=== PATIENT | male | born 1950 | race Caucasian/White ===

== ENCOUNTER 2016-06-12 12:50 | Inpatient (IN) | payer SELFPAY ==
[2016-06-12] VITALS (16 sets, daily range): BP systolic 112–155; BP diastolic 59–82
[~2016-06-12] VITALS: Ht 177.8 cm; Wt 89.2 kg
[2016-06-12] MEDS ORDERED: NITROGLYCERIN 200 MCG/2 ML SYRINGE FOR CATH/VASC LAB. ONE (13:01)
[2016-06-12] MEDS ORDERED: VERAPAMIL 5 MG/2 ML VIAL. ONE (13:02)
[2016-06-12] MEDS ORDERED: ATROPINE 0.5 MG/5 ML DISP.SYRIN. ONE (13:02)
[2016-06-12] MEDS ORDERED: BIVALIRUDIN 250 MG VIAL. IV ONE ×2 (13:02→13:45)
[2016-06-12] MEDS ORDERED: HEPARIN for IV BOLUS 10,000 UNIT/10 ML VIAL. ONE (13:02)
[2016-06-12] MEDS ORDERED: MIDAZOLAM HCL/PF 5 MG/5 ML VIAL. ONE (13:02)
[2016-06-12] MEDS ORDERED: FENTANYL PF 250 MCG/5 ML VIAL. ONE (13:02)
[2016-06-12] MEDS ORDERED: LIDOCAINE 2% 20 ML VIAL. ONE (13:03)
--- NOTE | 2016-06-12 13:03 | PHYS DOC ---
Past Medical History Past Medical History: CAD, [place] Additional Past Surgical Histo: Cardia Stent x1, Right groin stent Alcohol Use: None Drug Use: None Adult General Chief Complaint Chief Complaint: CHEST PAIN-CARDIAC NATURE HPI HPI Patient is a 66 year old male who presents by EMS for prehospital STEMI. He has central chest pain associated with lightheadedness; had a presyncopal episode walking to his truck prior to calling EMS. States he had intermittent central chest pressure/pain starting around 1000 today while at work. He denies dyspnea, back pain, cough, abdominal pain, numbness, tingling, weakness. States this feels exactly like prior heart attack that he required a stent to be placed; this was years ago. States PCP is Dr. Mendez Review of Systems Review of Systems Constitutional: Denies fever or chills [] Eyes: Denies change in visual acuity, redness, or eye pain [] HENT: Denies nasal congestion or sore throat [] Respiratory: Denies cough or shortness of breath [] Cardiovascular: No additional information not addressed in HPI [] GI: Denies abdominal pain, nausea, vomiting, bloody stools or diarrhea [] : Denies dysuria or hematuria [] Musculoskeletal: Denies back pain or joint pain [] Integument: Denies rash or skin lesions [] Neurologic: Denies headache, focal weakness or sensory changes [] Endocrine: Denies polyuria or polydipsia [] Current Medications Current Medications Current Medications Medications (Trade) Dose Ordered Sig/Ton Start Time Stop Time Status Last Admin Dose Admin Atropine Sulfate 0.5 mg STK-MED ONCE 06/12/16 13:02 06/12/16 13:03 DC Bivalirudin (Angiomax) 250 mg STK-MED ONCE 06/12/16 13:02 06/12/16 13:03 DC Fentanyl Citrate (Fentanyl 5ml Vial) 250 mcg STK-MED ONCE 06/12/16 13:02 06/12/16 13:03 DC Heparin Sodium (Porcine) (Heparin Sodium) 10,000 unit STK-MED ONCE 06/12/16 13:02 06/12/16 13:03 DC Heparin Sodium/ Sodium Chloride 1,000 ml @ As Directed STK-MED ONCE 06/12/16 13:03 06/12/16 13:04 DC Lidocaine HCl 20 ml STK-MED ONCE 06/12/16 13:03 06/12/16 13:04 DC Midazolam HCl 5 mg 5 mg STK-MED ONCE 06/12/16 13:02 06/12/16 13:03 DC Nitroglycerin (Nitroglycerin) 200 mcg STK-MED ONCE 06/12/16 13:01 06/12/16 13:02 DC Sodium Chloride (Iv Sodium Chloride 0.9% 1000ml Bag) 1,000 ml @ 1,000 mls/hr Q1H 06/12/16 13:15 06/12/16 14:14 Verapamil HCl (Verapamil) 5 mg STK-MED ONCE 06/12/16 13:02 06/12/16 13:03 DC Allergies Allergies Allergies Coded Allergies Type Severity Reaction Last Updated Verified No Known Drug Allergies 06/12/16 No Physical Exam Physical Exam Constitutional: Well developed, well nourished, severe distress, non-toxic appearance. [] HENT: Normocephalic, atraumatic, bilateral external ears normal, oropharynx moist, nose normal. [] Eyes: PERRLA, EOMI. [] Neck: Normal range of motion, supple. [] Cardiovascular:Heart rate regular rhythm [] Lungs & Thorax: Bilateral breath sounds clear to auscultation [] Abdomen: Bowel sounds normal, soft, no tenderness. [] Skin: Warm, dry, no erythema, no rash. [] Back: No tenderness, no CVA tenderness. [] Extremities: No tenderness, ROM intact, no edema. [] Neurologic: Alert and oriented X 3, normal motor function, normal sensory function, no focal deficits noted. [] Psychologic: Affect normal, judgement normal, mood normal. [] EKG EKG EKG as interpreted by me with inferior and posterior STEMI, rate 55, normal intervals, no ectopy Course & Med Decision Making Course & Med Decision Making Pertinent Labs and Imaging studies reviewed. (See chart for details) CODE STEMI called; Dr. Meraz, cardiology, was present at bedside for evaluation. Labs were drawn, he was given IVFs. Give ASA by EMS. He was emergently taken to the shift lab technician with cardiology team. Discussed case with Dr. Wong, who will admit. Dragon Disclaimer Dragon Disclaimer This electronic medical record was generated, in whole or in part, using a voice recognition dictation system. Departure Departure Impression: Primary Impression: STEMI (ST elevation myocardial infarction) Disposition: 09 ADMITTED INPATIENT Condition: CRITICAL Problem Qualifiers Primary Impression: STEMI (ST elevation myocardial infarction) Involved coronary artery: unspecified coronary artery Qualified Code: I21.3 - ST elevation (STEMI) myocardial infarction of unspecified site Navdeep FLEMING MD Jun 12, 2016 13:03
[2016-06-12] MEDS ORDERED: PHENYLEPHRINE in 0.9% NACL PF 1 MG/10 ML DISP.SYRIN. IV ONE (13:08)
[2016-06-12] MEDS ORDERED: IOHEXOL 300 MG/ML 100ML VIAL. ONE (13:13)
[2016-06-12] MEDS ORDERED: IV NORMAL SALINE 1000ML BAG 1,000 ML IV SCH (13:15)
[2016-06-12 13:18] LABS: BASO # 0.1 x10^3/uL (0.0-0.2); BASO % 1 % (0-3); EOS % 2 % (0-3); HEMATOCRIT 41.4 % (39.0-53.0); HEMOGLOBIN 14.1 g/dL (13.0-17.5); LYMPH # 2.8 x10^3/uL (1.0-4.8); LYMPH % 23 % (24-48); MEAN CORPUSCULAR HEMOGLOBIN 29 pg (25-35); MEAN CORPUSCULAR HGB CONC 34 g/dL (31-37); MEAN CORPUSCULAR VOLUME 86 fL (79-100); MONO % 10 % (0-9); NEUT % 65 % (31-73); PLATELET COUNT 299 x10^3/uL (140-400); RED BLOOD COUNT 4.81 x10^6/uL (4.30-5.70); RED CELL DISTRIBUTION WIDTH 14.3 % (11.5-14.5); WHITE BLOOD COUNT 12.3 x10^3/uL (4.0-11.0)
[2016-06-12 13:27] LABS: INR 1.1 (0.8-1.1); PROTHROMBIN TIME PATIENT 13.1 SEC (11.7-14.0)
[2016-06-12 13:31] LABS: CALCIUM 8.7 mg/dL (8.5-10.1); CREATININE 1.1 mg/dL (0.7-1.3); POTASSIUM 4.1 mmol/L (3.5-5.1)
[2016-06-12 13:32] LABS: MAGNESIUM 1.8 mg/dL (1.8-2.4)
[2016-06-12] MEDS ORDERED: FENTANYL PF 250 MCG/5 ML VIAL. IV ONE (13:45)
[2016-06-12] MEDS ORDERED: HEPARIN for IV BOLUS 10,000 UNIT/10 ML VIAL. IART ONE (13:45)
[2016-06-12] MEDS ORDERED: IOHEXOL 300 MG/ML 100ML VIAL. IART ONE (13:45)
[2016-06-12] MEDS ORDERED: IV NORMAL SALINE 1000ML BAG 1,000 ML IV ONE (13:45)
[2016-06-12] MEDS ORDERED: NITROGLYCERIN 200 MCG/2 ML SYRINGE FOR CATH/VASC LAB. IART ONE (13:45)
[2016-06-12] MEDS ORDERED: LIDOCAINE 2% 20 ML VIAL. IJ ONE (13:45)
[2016-06-12] MEDS ORDERED: VERAPAMIL 5 MG/2 ML VIAL. IART ONE (13:45)
[2016-06-12] MEDS ORDERED: MIDAZOLAM HCL/PF 5 MG/5 ML VIAL. IV ONE (13:45)
[2016-06-12] MEDS ORDERED: PRASUGREL 10 MG TABLET. PO ONE (14:00)
[2016-06-12] MEDS ORDERED: PRASUGREL 10 MG TABLET. ONE (14:01)
[2016-06-12] MEDS ORDERED: ONDANSETRON PF 4 MG/2 ML VIAL. IV PRN (14:45)
[2016-06-12] MEDS ORDERED: ACETAMINOPHEN 500 MG TABLET PO PRN (14:45)
[2016-06-12] MEDS ORDERED: MORPHINE SULFATE 2 MG/ML DISP.SYRIN. IV PRN (14:45)
[2016-06-12 15:02] LABS: CHOLESTEROL/HDL RATIO 4.4
--- NOTE | 2016-06-12 15:12 | EKG ---
[facility] [address] [place] [address] Test Date: 2016-06-12 Test Time: 12:50:10 Pat Name: ANA ROSA JOHN Department: Room: 116 1 Gender: M Fur Glazer: : 1950 Requested By: Navdeep FLEMING Order Number: [id number] Reading MD: Melody Britton Measurements Intervals [place] Rate: 55 P: 26 ND: 174 QRS: 43 QRSD: 102 T: 86 QT: 394 QTc: 379 Interpretive Statements SINUS RHYTHM ACUTE ST ELEVATION INFERIOR WALL MYOCARDIAL INFARCTION RECIPROCAL ST DEPRESSION OVER ANTEROLATERAL LEADS RI6.01 Unconfirmed report No previous ECG available for comparison Electronically Signed On 06-16-2016 13:31:37 CDT by Melody Britton
--- NOTE | 2016-06-12 16:39 | CARD ---
APPROVED REPORT Procedure(s) performed: Right transradial approach Left Heart Catheterization, Coronary angiography, Left ventriculography PTCA with Stenting - RCA IVUS - RCA HISTORY The patient is a 66 year-old male with a history of : coronary artery disease, tobacco history() : Th e patient is a former smoker, previous PCI (The PCI date was 02-25-2006), family history of premature CAD. INDICATION The indication(s) include : STEMI (>0 to less than or equal to 6 hours), 66-year-old male presenting with intermittent chest pain for approximately 4 hours who was brought in by EMS for worsening chest pain. Initial EKG in the ER revealed a [address] elevations with posterior reciprocal changes. CASE TECHNIQUE During this case, Fluoroscopy and low osmolar contrast were used for imaging. PROCEDURE NARRATIVE The patient was brought emergently to the cardiac catheterization lab. Verbal informed consent was o btained. A timeout was performed confirming the patient's name, date of , procedure, and site of procedure. All necessary personnel were wearing the appropriate protective equipment and radiation monitor devices. (See nursing notes for medications administered). The right wrist was sterilely pr epped and draped in the usual fashion. The right wrist was infiltrated with 1 mL of 2% lidocaine for subcutaneous anesthesia. A 6 Maori Terumo glide sheath was inserted into the right radial artery w ithout difficulty. Right and left coronary angiography was performed using an Ikari 1.5 right guide catheter. HEMODYNAMICS: LVEDP 18 mm Hg No gradient on LV to aortic pullback. LEFT VENTRICULOGRAM: EF 55% Anterobasal: Normal. Anterolateral: Normal Apical: Normal Diaphragmatic: Normal Posterobasal: Normal CORONARY ANGIOGRAPHY: LM is a large caliber vessel with normal angiographic appearance. LAD is a large caliber vessel with normal angiographic appearance. Ramus is a moderate caliber vessel with a mid 40-50% stenosis. LCx is a moderate caliber non-dominant vessel with normal angiographic appearance. OM1 is a moderate caliber vessel with normal angiographic appearance. RCA is a large caliber dominant vessel with acute stent thrombosis (100% occlusion) of a mid previous ly placed stent. RPDA and RPL are moderate caliber vessels with normal angiographic appearance. INTERVENTIONAL TECHNIQUE: PCI OF THE MID RCA STENT THROMBOSIS Based on the presenting symptoms, EKG changes and angiographic findings and intervention was performe d on the RCA. Bivalirudin was used for anticoagulation. Next, through the guide catheter a 0.014 inch pro-water wire was advanced to the distal RCA. There was immediate wire reperfusion. Next balloon an gioplasty was performed with a Trek 3.0 x 15 mm balloon at 14 dinh near the mid RCA in the mid segment of the previously placed stent. Next, a 3.5 x 15 mm balloon (noncompliant) was used to perform repea t angioplasty of the previously placed stent. Subsequently, a intravascular ultrasound catheter was u sed to evaluate stent apposition to determine the etiology of stent thrombosis. Intravascular ultraso und revealed a undersized stent with lack of apposition in the midsegment. The intravascular ultrasou nd also revealed significant negative remodeling of the vessel and it measured approximately 3.5 mm i n maximum diameter in the proximal and distal segments. The mid segment was ecentrically enlarged wit h positive remodeling measuring approximately 4 mm. Next, a Zions 3.25 x 38 mm AMELIE was advanced to the the mid to distal RCA and deployed at 12 dinh. Jada lly, repeat angioplasty was performed with a 3.5/15 NC balloon at high pressure. Post-PCI angiography revealed excellent stent expansion with AZRA 3 flow in the RCA. No evidence of guide or wire related complications were noted. Due to less than optimal left sided coronary angiography with the Ikari 1.5 catheter, a TIG catheter was used to perform left coronary angiography. Left ventricular end diastolic pressure was obtained w ith a pigtail catheter and pullback was performed after left ventriculography. All catheter exchange s and advancements were performed over a guidewire. At case completion the right radial sheath was r emoved and a Terumo radial band was applied with 13 ml of air. The patient tolerated the procedure w ell and there were no immediate complications. The patient received Prasugrel 60mg at case completion . Conclusion 1. Inferior STEMI secondary to acute stent thrombosis of the previously placed mid RCA stent. 2. Successful PCI of the mid RCA with implantation of a 3.25 x 38 mm Xience AMELIE post-dilated to 3.6mm via the right radial approach. 3. IVUS of the RCA Recommendations ASA 81mg daily indefinitely Prasugrel 10mg daily for at least 1 year (Consider lifelong DAPT if tolerated) Cardiac rehab referral Lipid optimization Follow up through primary supervisor [facility].
--- NOTE | 2016-06-12 17:48 | PDOC2 ---
CARDIOLOGY CONSULT NOTE CHEIF COMPLAINT: Chest pain Problems: HPI: Patient is a 66-year-old male presenting to the hospital in the setting of intermittent chest pain. He was found to have significant inferior ST elevations and was taken to the catheterization laboratory urgently. PMHX: Hypertension Peripheral vascular disease Tobacco history SOCHX: No illicit drug use. He is . FAMHX: Noncontributory CURRENT MEDS: Current Medications Medications (Trade) Dose Ordered Sig/Ton Start Time Stop Time Status Last Admin Dose Admin Acetaminophen (Tylenol) 500 mg PRN Q6HRS PRN 06/12/16 14:45 Aspirin (Winsome Aspirin) 325 mg [id number] 06/13/16 08:00 Atorvastatin Calcium (Lipitor) 40 mg QHS 06/12/16 21:00 Atropine Sulfate 0.5 mg STK-MED ONCE 06/12/16 13:02 06/12/16 13:03 DC Bivalirudin (Angiomax) 250 mg 1X ONCE 06/12/16 13:45 06/12/16 13:46 DC 06/12/16 14:13 250 MG Dopamine HCl/ Dextrose 0 ml @ As Directed STK-MED ONCE 06/12/16 13:08 06/12/16 13:09 DC Fentanyl Citrate (Fentanyl 5ml Vial) 250 mcg 1X ONCE 06/12/16 13:45 06/12/16 13:46 DC Heparin Sodium (Porcine) (Heparin Sodium) 2,500 unit 1X ONCE 06/12/16 13:45 06/12/16 13:46 DC 06/12/16 14:12 2,500 UNIT Heparin Sodium/ Sodium Chloride 1,000 unit 1X ONCE 06/12/16 13:45 06/12/16 13:46 DC 06/12/16 13:45 1,000 UNIT Iohexol (Omnipaque 300 Mg/ml) 100 ml 1X ONCE 06/12/16 13:45 06/12/16 13:46 DC 06/12/16 14:07 162 ML Lidocaine HCl 20 ml STK-MED ONCE 06/12/16 13:03 06/12/16 13:04 DC Lidocaine HCl 20 ml 20 ml 1X ONCE 06/12/16 13:45 06/12/16 13:46 DC 06/12/16 14:06 2 ML Midazolam HCl (Versed) 5 mg 1X ONCE 06/12/16 13:45 06/12/16 13:46 DC 06/12/16 14:08 3 MG Morphine Sulfate 2 mg PRN Q2HR PRN 06/12/16 14:45 Nitroglycerin (Nitroglycerin) 200 mcg 1X ONCE 06/12/16 13:45 06/12/16 13:46 DC 06/12/16 14:07 200 MCG Ondansetron HCl (Zofran) 4 mg PRN Q6HRS PRN 06/12/16 14:45 Phenylephrine HCl 1 mg 1 mg STK-MED ONCE 06/12/16 13:08 06/12/16 13:09 DC Prasugrel (Effient) 10 mg DAILYWBKFT 06/13/16 08:00 Sodium Chloride (Iv Sodium Chloride 0.9% 1000ml Bag) 1,000 ml @ 100 mls/hr 1X ONCE 06/12/16 13:45 06/12/16 23:44 Verapamil HCl (Verapamil) 2.5 mg 1X ONCE 06/12/16 13:45 06/12/16 13:46 DC 06/12/16 14:15 2.5 MG ALLERGIES: Allergies Coded Allergies Type Severity Reaction Last Updated Verified No Known Drug Allergies 06/12/16 No ROS: Negative for 10 out of 14 systems reviewed unless otherwise mentioned above in history of present illness. PHYSICAL EXAM: Vital Signs: Vital Signs Date Time Temp Pulse Resp B/P Pulse Ox O2 Delivery O2 Flow Rate FiO2 06/12/16 16:11 Room Air 06/12/16 14:19 72 16 95 3.0 06/12/16 12:50 97.4 128/70 97.4 Physical Exam: In general he was in mild distress from chest pain Head and neck exam unremarkable Regular rate and rhythm without any murmurs rubs gallops Lungs clear to auscultation anteriorly Abdomen soft nontender nondistended 2+ radial and dorsalis pedis pulses Normal mood/affect DIAGNOSTIC TESTING: Troponin 0.059 EKG with [address] elevations Lab Laboratory Tests Test 06/12/16 12:50 White Blood Count 12.3x10^3/uL (4.0-11.0) H Red Blood Count 4.81x10^6/uL (4.30-5.70) Hemoglobin 14.1g/dL (13.0-17.5) Hematocrit 41.4% (39.0-53.0) Mean Corpuscular Volume 86fL (79-100) Mean Corpuscular Hemoglobin 29pg (25-35) Mean Corpuscular Hemoglobin Concent 34g/dL (31-37) Red Cell Distribution Width 14.3% (11.5-14.5) Platelet Count 299x10^3/uL (140-400) Neutrophils (%) (Auto) 65% (31-73) Lymphocytes (%) (Auto) 23% (24-48) L Monocytes (%) (Auto) 10% (0-9) H Eosinophils (%) (Auto) 2% (0-3) Basophils (%) (Auto) 1% (0-3) Neutrophils # (Auto) 7.9x10^3uL (1.8-7.7) H Lymphocytes # (Auto) 2.8x10^3/uL (1.0-4.8) Monocytes # (Auto) 1.2x10^3/uL (0.0-1.1) H Eosinophils # (Auto) 0.3x10^3/uL (0.0-0.7) Basophils # (Auto) 0.1x10^3/uL (0.0-0.2) Prothrombin Time 13.1SEC (11.7-14.0) Prothromb Time International Ratio 1.1 (0.8-1.1) Sodium Level 142mmol/L (136-145) Potassium Level 4.1mmol/L (3.5-5.1) Chloride Level 105mmol/L (98-107) Carbon Dioxide Level 24mmol/L (21-32) Anion Gap 13 (6-14) Blood Urea Nitrogen 22mg/dL (8-26) Creatinine 1.1mg/dL (0.7-1.3) Estimated GFR (Cockcroft-Gault) 67.0 Glucose Level 117mg/dL (70-99) H Calcium Level 8.7mg/dL (8.5-10.1) Cholesterol Level 164mg/dL (0-200) LDL Cholesterol, Calculated 107mg/dL (0-100) H VLDL Cholesterol, Calculated 20mg/dL (0-40) Cholesterol/HDL Ratio 4.[address]: [address] elevation myocardial infarction status post PCI with placement of a 3.25 x 38 mm drug-eluting stent in the mid RCA. PLAN: 1. Aspirin 81 mg daily indefinitely, Effient 10 mg daily for 1 full year and dual antiplatelet therapy with aspirin and Plavix thereafter. 2. Lipid optimization with LDL goal less than 70. 3. Cardiac rehabilitation referral. 4. Routine right radial artery band management. Monitoring the ICU for 24 hours and transferred to regular floor and anticipate discharge in approximate 48 hours. JORGE HINTON MD Jun 12, 2016 17:48
--- NOTE | 2016-06-12 18:54 | PDOC1 ---
History and Physical Date of Admission Date of Admission DATE: 06/12/16 TIME: 18:48 Identification/Chief Complaint Chief Complaint CP Problems: Source Source: Chart review, Patient History of Present Illness History of Present Illness 66 y.o male, had excruciating CP at rest while at work, hx AR > 10 yrs ago with 1 stent. CP was so severe, 10/10, midsternal tammy left sided associated with diaphoresis, vision problems, almost blacking out/tunnel vision , he thought he would collapse. Decided not to drive and call 911. EMS arrived, EKG done, EKG showed STEMI, activated STEMI code and cards received pt out in the parking lot - a gesture he very much appreciated,. Underwent urgent cardiac cath which showed 100% occlusion of indwelling stent, Was re stented and now CP free, seen in ICU, off dopamine gtt, BP good and claims he feels so good that he thinks I could dc him home tonight. Past Medical History Cardiovascular: CAD Past Surgical History Past Surgical History: No pertinent history Family History Family History: Hypertension Social History Smoke: No ALCOHOL: none Drugs: None Current Problem List Problem List Problems Medical Problems: (1) STEMI (ST elevation myocardial infarction) Status: Acute Problems: Current Medications Current Medications Current Medications Sodium Chloride (Iv Sodium Chloride 0.9% 1000ml Bag) 1,000 ml @ 1,000 mls/hr Q1H IV Last administered on 06/12/16t 13:05; Start 06/12/16 at 13:15; Stop at 14:14; Status DC Nitroglycerin (Nitroglycerin) 200 mcg STK-MED ONCE .ROUTE ; Start 06/12/16 at 13 :01; Stop 06/12/16 at 13:02; Status DC Atropine Sulfate 0.5 mg STK-MED ONCE .ROUTE ; Start 06/12/16 at 13:02; Stop at 13:03; Status DC Verapamil HCl (Verapamil) 5 mg STK-MED ONCE .ROUTE ; Start 06/12/16 at 13:02; Stop 06/12/16 at 13:03; Status DC Heparin Sodium (Porcine) (Heparin Sodium) 10,000 unit STK-MED ONCE .ROUTE ; Start 06/12/16 at 13:02; Stop 06/12/16 at 13:03; Status DC Bivalirudin (Angiomax) 250 mg STK-MED ONCE IV ; Start 06/12/16 at 13:02; Stop at 13:03; Status DC Fentanyl Citrate (Fentanyl 5ml Vial) 250 mcg STK-MED ONCE .ROUTE ; Start at 13:02; Stop 06/12/16 at 13:03; Status DC Midazolam HCl 5 mg 5 mg STK-MED ONCE .ROUTE ; Start 06/12/16 at 13:02; Stop at 13:03; Status DC Heparin Sodium/ Sodium Chloride 1,000 ml @ As Directed STK-MED ONCE .ROUTE ; Start 06/12/16 at 13:03; Stop 06/12/16 at 13:04; Status DC Lidocaine HCl 20 ml STK-MED ONCE .ROUTE ; Start 06/12/16 at 13:03; Stop at 13:04; Status DC Phenylephrine HCl 1 mg 1 mg STK-MED ONCE IV ; Start 06/12/16 at 13:08; Stop at 13:09; Status DC Dopamine HCl/ Dextrose 0 ml @ As Directed STK-MED ONCE IV ; Start 06/12/16 at 13 :08; Stop 06/12/16 at 13:09; Status DC Iohexol (Omnipaque 300 Mg/ml) 100 ml STK-MED ONCE .ROUTE ; Start 06/12/16 at 13: 13; Stop 06/12/16 at 13:14; Status DC Nitroglycerin (Nitroglycerin) 200 mcg 1X ONCE IART Last administered on 14:07; Start 06/12/16 at 13:45; Stop 06/12/16 at 13:46; Status DC Verapamil HCl (Verapamil) 2.5 mg 1X ONCE IART Last administered on 06/12/16 14:15; Start 06/12/16 at 13:45; Stop 06/12/16 at 13:46; Status DC Heparin Sodium (Porcine) (Heparin Sodium) 2,500 unit 1X ONCE IART Last administered on 06/12/16 14:12; Start 06/12/16 at 13:45; Stop 06/12/16 at 13:46 ; Status DC Heparin Sodium/ Sodium Chloride 1,000 unit 1X ONCE IART Last administered on 13:45; Start 06/12/16 at 13:45; Stop 06/12/16 at 13:46; Status DC Midazolam HCl (Versed) 5 mg 1X ONCE IV Last administered on 06/12/16 14:08; Start 06/12/16 at 13:45; Stop 06/12/16 at 13:46; Status DC Fentanyl Citrate (Fentanyl 5ml Vial) 250 mcg 1X ONCE IV ; Start 06/12/16 at 13: 45; Stop 06/12/16 at 13:46; Status DC Iohexol (Omnipaque 300 Mg/ml) 100 ml 1X ONCE IART Last administered on 14:07; Start 06/12/16 at 13:45; Stop 06/12/16 at 13:46; Status DC Bivalirudin (Angiomax) 250 mg 1X ONCE IV Last administered on 06/12/16 14:13 ; Start 06/12/16 at 13:45; Stop 06/12/16 at 13:46; Status DC Lidocaine HCl 20 ml 20 ml 1X ONCE IJ Last administered on 06/12/16 14:06; Start 06/12/16 at 13:45; Stop 06/12/16 at 13:46; Status DC Sodium Chloride (Iv Sodium Chloride 0.9% 1000ml Bag) 1,000 ml @ 100 mls/hr 1X ONCE IV Last administered on 06/12/16 17:46; Start 06/12/16 at 13:45; Stop at 23:44 Prasugrel (Effient) 10 mg STK-MED ONCE .ROUTE ; Start 06/12/16 at 14:01; Stop at 14:02; Status DC Prasugrel (Effient) 60 mg 1X ONCE PO Last administered on 06/12/16 14:16; Start 06/12/16 at 14:00; Stop 06/12/16 at 14:04; Status DC Acetaminophen (Tylenol) 500 mg PRN Q6HRS PRN PO MILD PAIN / TEMP; Start at 14:45 Ondansetron HCl (Zofran) 4 mg PRN Q6HRS PRN IV NAUSEA/VOMITING; Start 06/12/16 at 14:45 Morphine Sulfate 2 mg PRN Q2HR PRN IV PAIN; Start 4/18/17 at 14:45 Aspirin (Winsome Aspirin) 325 mg DAILYWBKFT PO ; Start 06/13/16 at 08:00; Stop at 08:00; Status DC Prasugrel (Effient) 10 mg DAILYWBKFT PO ; Start 06/13/16 at 08:00 Atorvastatin Calcium (Lipitor) 40 mg QHS PO ; Start 06/12/16 at 21:00 Aspirin (Ecotrin) 81 mg DAILYWBKFT PO ; Start 06/13/16 at 08:00 Allergies Allergies: Coded Allergies: No Known Drug Allergies (Unverified , 06/12/16) ROS Review of System per HPI General: No: Appetite, Chills, Fatigue, Malaise, Night Sweats, Other PSYCHOLOGICAL ROS: No: Anxiety, Behavioral Disorder, Concentration difficultie , Decreased libido, Depression, Disorientation, Hallucinations, Hostility, Irritablity, Memory difficulties, Mood Swings, Obsessive thoughts, Other, Physical abuse, Sexual abuse, Sleep disturbances, Suicidal ideation Eyes: No Blurry vision, No Decreased vision, No Double vision, No Dry eyes, No Excessive tearing, No Eye Pain, No Itchy Eyes, No Loss of vision, No Other, No Photophobia, No Scotomata, No Uses contacts, No Uses glasses HEENT: No: Epistaxis, Heacaches, Hearing change, Nasal congestion, Nasal discharge, Oral lesions, Other, Sinus pain, Sneezing, Snoring, Sore Throat, Tinnitus, Vertigo, Visual Changes, Vocal changes ALLERGY AND IMMUNOLOGY: No: Hives, Insect Bite Sensitivity, Itchy/Watery Eyes, Nasal Congestion, Other, Post Nasal Drip, Seasonal Allergies Hematological and Lymphatic: No: Bleeding Problems, Blood Clots, Blood Transfusions, Brusing, Night Sweats, Other, Pallor, Swollen Lymph Nodes ENDOCRINE: No: Breast Changes, Galactorrhea, Hair Pattern Changes, Hot Flashes , Malaise/lethargy, Mood Swings, Other, Palpitations, Polydipsia/polyuria, Skin Changes, Temperature Intolerance, Unexpected Weight Changes Breast: No New/Changing Breast Lumps, No Nipple changes, No Nipple discharge, No Other Respiratory: No: Cough, Hemoptysis, Orthopnea, Other, Pleuritic Pain, SOB with excertion, Shortness of breath, Sputum Changes, Stridor, Tachypnea, Wheezing Cardiovascular: yes Chest Pain, No Edema, No Lt Headedness, No Orthopnea, No Other, No Palpitations, No Paroxysmal Noc. Dyspnea Gastrointestinal: No Abdominal Pain, No Constipation, No Diarrhea, No Hematochezia, No Melena, No Nausea, No Other, No Vomiting Genitourinary: No , No , No , No , No , No , No , No Discharge, No Dysuria, No Flank Pain, No Frequency, No Hematuria, No Incontinence, No Other, No Pain, No Retention, No Urgency Musculoskeletal: No Gait Disturbance, No Joint Pain, No Joint Stiffness, No Joint Swelling, No Muscle Pain, No Muscular Weakness, No Other, No Pain In:, No Swelling In: Neurological: No Behavorial Changes, No Bowel/Bladder ControlChng, No Confusion , No Dizziness, No Gait Disturbance, No Headaches, No Impaired Coord/balance, No Memory Loss, No Numbness/Tingling, No Other, No Seizures, No Speech Problems , No Tremors, No Visual Changes, No Weakness Physical Exam General: Alert, Oriented X3, Cooperative, No acute distress HEENT: PERRLA Lungs: Clear to auscultation, Normal air movement Heart: S1S2, RRR, no thrills, no rubs Cardiovascular: S1, S2 Breasts: Normal Abdomen: Normal bowel sounds, Soft, No tenderness, No hepatosplenomegaly, No masses Male Genitals Exam: normal genitalia, normal prostate Extremities: No clubbing, No cyanosis, No edema, Normal pulses, No tenderness/ swelling Skin: No rashes, No breakdown, No significant lesion Neuro: Normal gait, Normal speech, Strength at 5/5 X4 ext, Normal tone, Sensation intact, Cranial nerves 3-12 NL, Reflexes 2+ Psych/Mental Status: Mental status NL, Mood NL Vitals Vitals Vital Signs Date Time Temp Pulse Resp B/P Pulse Ox O2 Delivery O2 Flow Rate FiO2 06/12/16 18:00 72 14 146/77 95 Room Air 06/12/16 15:00 98.7 98.7 06/12/16 14:45 2.0 Labs Labs Laboratory Tests Test 06/12/16 12:50 White Blood Count 12.3x10^3/uL (4.0-11.0) Red Blood Count 4.81x10^6/uL (4.30-5.70) Hemoglobin 14.1g/dL (13.0-17.5) Hematocrit 41.4% (39.0-53.0) Mean Corpuscular Volume 86fL (79-100) Mean Corpuscular Hemoglobin 29pg (25-35) Mean Corpuscular Hemoglobin Concent 34g/dL (31-37) Red Cell Distribution Width 14.3% (11.5-14.5) Platelet Count 299x10^3/uL (140-400) Neutrophils (%) (Auto) 65% (31-73) Lymphocytes (%) (Auto) 23% (24-48) Monocytes (%) (Auto) 10% (0-9) Eosinophils (%) (Auto) 2% (0-3) Basophils (%) (Auto) 1% (0-3) Neutrophils # (Auto) 7.9x10^3uL (1.8-7.7) Lymphocytes # (Auto) 2.8x10^3/uL (1.0-4.8) Monocytes # (Auto) 1.2x10^3/uL (0.0-1.1) Eosinophils # (Auto) 0.3x10^3/uL (0.0-0.7) Basophils # (Auto) 0.1x10^3/uL (0.0-0.2) Prothrombin Time 13.1SEC (11.7-14.0) Prothromb Time International Ratio 1.1 (0.8-1.1) Sodium Level 142mmol/L (136-145) Potassium Level 4.1mmol/L (3.5-5.1) Chloride Level 105mmol/L (98-107) Carbon Dioxide Level 24mmol/L (21-32) Anion Gap 13 (6-14) Blood Urea Nitrogen 22mg/dL (8-26) Creatinine 1.1mg/dL (0.7-1.3) Estimated GFR (Cockcroft-Gault) 67.0 Glucose Level 117mg/dL (70-99) Calcium Level 8.7mg/dL (8.5-10.1) Magnesium Level 1.8mg/dL (1.8-2.4) Troponin I Quantitative 0.059ng/mL (0.000-0.055) UP-Dna-C-Type Natriuretic Peptide 280pg/mL (0-124) Triglycerides Level 99mg/dL (0-150) Cholesterol Level 164mg/dL (0-200) LDL Cholesterol, Calculated 107mg/dL (0-100) VLDL Cholesterol, Calculated 20mg/dL (0-40) HDL Cholesterol 37mg/dL (40-60) Cholesterol/HDL Ratio 4.4 Laboratory Tests Test 06/12/16 12:50 White Blood Count 12.3x10^3/uL (4.0-11.0) Red Blood Count 4.81x10^6/uL (4.30-5.70) Hemoglobin 14.1g/dL (13.0-17.5) Hematocrit 41.4% (39.0-53.0) Mean Corpuscular Volume 86fL (79-100) Mean Corpuscular Hemoglobin 29pg (25-35) Mean Corpuscular Hemoglobin Concent 34g/dL (31-37) Red Cell Distribution Width 14.3% (11.5-14.5) Platelet Count 299x10^3/uL (140-400) Neutrophils (%) (Auto) 65% (31-73) Lymphocytes (%) (Auto) 23% (24-48) Monocytes (%) (Auto) 10% (0-9) Eosinophils (%) (Auto) 2% (0-3) Basophils (%) (Auto) 1% (0-3) Neutrophils # (Auto) 7.9x10^3uL (1.8-7.7) Lymphocytes # (Auto) 2.8x10^3/uL (1.0-4.8) Monocytes # (Auto) 1.2x10^3/uL (0.0-1.1) Eosinophils # (Auto) 0.3x10^3/uL (0.0-0.7) Basophils # (Auto) 0.1x10^3/uL (0.0-0.2) Prothrombin Time 13.1SEC (11.7-14.0) Prothromb Time International Ratio 1.1 (0.8-1.1) Sodium Level 142mmol/L (136-145) Potassium Level 4.1mmol/L (3.5-5.1) Chloride Level 105mmol/L (98-107) Carbon Dioxide Level 24mmol/L (21-32) Anion Gap 13 (6-14) Blood Urea Nitrogen 22mg/dL (8-26) Creatinine 1.1mg/dL (0.7-1.3) Estimated GFR (Cockcroft-Gault) 67.0 Glucose Level 117mg/dL (70-99) Calcium Level 8.7mg/dL (8.5-10.1) Magnesium Level 1.8mg/dL (1.8-2.4) Troponin I Quantitative 0.059ng/mL (0.000-0.055) NC-Eou-Y-Type Natriuretic Peptide 280pg/mL (0-124) Triglycerides Level 99mg/dL (0-150) Cholesterol Level 164mg/dL (0-200) LDL Cholesterol, Calculated 107mg/dL (0-100) VLDL Cholesterol, Calculated 20mg/dL (0-40) HDL Cholesterol 37mg/dL (40-60) Cholesterol/HDL Ratio 4.4 VTE Prophylaxis Ordered VTE Prophylaxis Devices: Yes VTE Pharmacological Prophylaxi: Yes Assessment/Plan Assessment/Plan 1. STEMI s.p LHC with re stenting of 100% stenosis of indwelling stent 2. Transient hypotension off dopa 3. Hx AR CAD > 10 yrs 4. REMOTE smoking hx PLAn: CPm Per cads ICU overnight MIght be able to t/o home tammy when cleared by cards EDucation and counselling done Lipid panel if not yet done Seen in ICU 116 MARK DALEY MD Jun 12, 2016 18:54
[2016-06-12] MEDS: ATORVASTATIN CALCIUM 40 MG TABLET. PO SCH (19:41)
[2016-06-13] VITALS (15 sets, daily range): BP systolic 99–151; BP diastolic 47–75
[2016-06-13] MEDS ORDERED: SERT100T PO (07:15)
[2016-06-13] MEDS ORDERED: OMEG100020 PO (07:15)
[2016-06-13] MEDS ORDERED: ASPI81TA2 PO (07:15)
[2016-06-13] MEDS ORDERED: ASPIRIN 325 MG TABLET PO SCH (08:00)
[2016-06-13] MEDS: ASPIRIN ENTERIC COATED 81 MG TABLET.DR. PO SCH (08:30)
[2016-06-13] MEDS: PRASUGREL 10 MG TABLET. PO SCH (08:30)
[2016-06-13] MEDS ORDERED: ATOR10TA PO (08:32)
[2016-06-13] MEDS ORDERED: OMEG-113 PO (08:32)
[2016-06-13] MEDS: SERTRALINE 50 MG TABLET. PO SCH (10:53)
--- NOTE | 2016-06-13 11:17 | PDOC ---
NELLYAPRIL Ciro [employer]EC[employer]IVE CHEF 06/13/16 1116: CARDIO Progress Notes Date and Time Date of Service 06/13/2016 Time of Evaluation 1111 Subjective Subjective: No Chest Pain, No Palpitations, No Dizziness, Other ("catch" with breathing) Vitals Vitals Vital Signs Date Time Temp Pulse Resp B/P Pulse Ox O2 Delivery O2 Flow Rate FiO2 06/13/16 09:00 64 16 144/66 98 Room Air 06/13/16 08:00 98.3 98.3 06/12/16 23:59 3.0 Weight Weight [ ] Stability Assessment Stability Assess.: stable for transfer (to [facility]) Input and Output Intake and Output Intake and Output 06/13/16 07:00 Intake Total 2389 ml Output Total 2275 ml Balance 114 ml Intake Oral 800 ml IV Total 1589 ml Output Urine Total 2275 ml Laboratory Labs Laboratory Tests Test 06/12/16 12:50 06/12/16 18:40 06/13/16 01:05 White Blood Count 12.3x10^3/uL (4.0-11.0) Red Blood Count 4.81x10^6/uL (4.30-5.70) Hemoglobin 14.1g/dL (13.0-17.5) Hematocrit 41.4% (39.0-53.0) Mean Corpuscular Volume 86fL (79-100) Mean Corpuscular Hemoglobin 29pg (25-35) Mean Corpuscular Hemoglobin Concent 34g/dL (31-37) Red Cell Distribution Width 14.3% (11.5-14.5) Platelet Count 299x10^3/uL (140-400) Neutrophils (%) (Auto) 65% (31-73) Lymphocytes (%) (Auto) 23% (24-48) Monocytes (%) (Auto) 10% (0-9) Eosinophils (%) (Auto) 2% (0-3) Basophils (%) (Auto) 1% (0-3) Neutrophils # (Auto) 7.9x10^3uL (1.8-7.7) Lymphocytes # (Auto) 2.8x10^3/uL (1.0-4.8) Monocytes # (Auto) 1.2x10^3/uL (0.0-1.1) Eosinophils # (Auto) 0.3x10^3/uL (0.0-0.7) Basophils # (Auto) 0.1x10^3/uL (0.0-0.2) Prothrombin Time 13.1SEC (11.7-14.0) Prothromb Time International Ratio 1.1 (0.8-1.1) Sodium Level 142mmol/L (136-145) Potassium Level 4.1mmol/L (3.5-5.1) Chloride Level 105mmol/L (98-107) Carbon Dioxide Level 24mmol/L (21-32) Anion Gap 13 (6-14) Blood Urea Nitrogen 22mg/dL (8-26) Creatinine 1.1mg/dL (0.7-1.3) Estimated GFR (Cockcroft-Gault) 67.0 Glucose Level 117mg/dL (70-99) Calcium Level 8.7mg/dL (8.5-10.1) Magnesium Level 1.8mg/dL (1.8-2.4) Troponin I Quantitative 0.059ng/mL (0.000-0.055) 8.094ng/mL (0.000-0.055) 15.278ng/mL (0.000-0.055) SN-Qsg-R-Type Natriuretic Peptide 280pg/mL (0-124) Triglycerides Level 99mg/dL (0-150) Cholesterol Level 164mg/dL (0-200) LDL Cholesterol, Calculated 107mg/dL (0-100) VLDL Cholesterol, Calculated 20mg/dL (0-40) HDL Cholesterol 37mg/dL (40-60) Cholesterol/HDL Ratio 4.4 Physical Exam HEENT: Neck Supple W Full Motion Chest: Symmetric LUNGS: Clear to Auscultation Heart: S1S2, RRR, no gallops, no murmurs Abdomen: Soft N/T Extremities: 2+ Dorsalis Pedis, 2+ Posterior Tibial, No Edema, Other (right radial arteriotomy site C/D/I; pulse 2+; cap refill brisk; 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 STEMI, inferior thrombosis in existing RCA stent; 3.25 X 38 mm Zions AMELIE to mid RCA DAPT recommended for at least 12 months and lifelong if tolerates LVEF 55% on LV gram may transfer to CVC today and increase activity - likely discharge tomorrow 2. Hypotension has been weaned off dobutamine will try to start low dose BB later today if BP and HR stable 3. HLD LDLs = 107 continue high dose statin therapy JORGE HINTON MD 06/13/16 1721: CARDIO Progress Notes Plan Plan Patient seen and examined. Agree with above nurse practitioner noted. No acute events overnight. Patient denies any chest pain. Normal cardiac exam. Medications at laboratory studies reviewed. Continue to trend biomarkers. Anticipate echo cardiac exam tomorrow morning. If stable overnight likely discharged tomorrow. APRIL VILLEGAS [employer]F Jun 13, 2016 11:16 JORGE HINTON MD Jun 13, 2016 17:21
[2016-06-13] MEDS: CARVEDILOL 3.125 MG TABLET. PO SCH ×2 (12:05→17:23)
--- NOTE | 2016-06-13 12:31 | PDOC ---
PROGRESS NOTES Chief Complaint Chief Complaint 1. STEMI s.p C with re stenting of 100% stenosis of indwelling stent at RCA, EF 55% 2. Transient hypotension off dopa 3. Hx [place] CAD > 10 yrs 4. REMOTE smoking hx PLAn: ok to transfer out of ICU MIght be able to t/o home tammy when cleared by cards EDucation and counselling done on asa, effient, coreg increase lipitor to 40mg daily History of Present Illness History of Present Illness post PCI no chest pain Vitals Vitals Vital Signs Date Time Temp Pulse Resp B/P Pulse Ox O2 Delivery O2 Flow Rate FiO2 06/13/16 10:00 70 28 141/72 98 Room Air 06/13/16 08:00 98.3 98.3 06/12/16 23:59 3.0 Physical Exam General: Alert, Oriented X3, Cooperative, No acute distress Heart: Regular rate, Normal S1, Normal S2 Lungs: Clear Abdomen: Normal bowel sounds, Soft, No tenderness, No hepatosplenomegaly, No masses Extremities: No clubbing, No cyanosis, No edema, Normal pulses, No tenderness/ swelling Skin: No rashes, No breakdown, No significant lesion Labs LABS Laboratory Tests Test 06/12/16 12:50 06/12/16 18:40 06/13/16 01:05 White Blood Count 12.3x10^3/uL (4.0-11.0) Red Blood Count 4.81x10^6/uL (4.30-5.70) Hemoglobin 14.1g/dL (13.0-17.5) Hematocrit 41.4% (39.0-53.0) Mean Corpuscular Volume 86fL (79-100) Mean Corpuscular Hemoglobin 29pg (25-35) Mean Corpuscular Hemoglobin Concent 34g/dL (31-37) Red Cell Distribution Width 14.3% (11.5-14.5) Platelet Count 299x10^3/uL (140-400) Neutrophils (%) (Auto) 65% (31-73) Lymphocytes (%) (Auto) 23% (24-48) Monocytes (%) (Auto) 10% (0-9) Eosinophils (%) (Auto) 2% (0-3) Basophils (%) (Auto) 1% (0-3) Neutrophils # (Auto) 7.9x10^3uL (1.8-7.7) Lymphocytes # (Auto) 2.8x10^3/uL (1.0-4.8) Monocytes # (Auto) 1.2x10^3/uL (0.0-1.1) Eosinophils # (Auto) 0.3x10^3/uL (0.0-0.7) Basophils # (Auto) 0.1x10^3/uL (0.0-0.2) Prothrombin Time 13.1SEC (11.7-14.0) Prothromb Time International Ratio 1.1 (0.8-1.1) Sodium Level 142mmol/L (136-145) Potassium Level 4.1mmol/L (3.5-5.1) Chloride Level 105mmol/L (98-107) Carbon Dioxide Level 24mmol/L (21-32) Anion Gap 13 (6-14) Blood Urea Nitrogen 22mg/dL (8-26) Creatinine 1.1mg/dL (0.7-1.3) Estimated GFR (Cockcroft-Gault) 67.0 Glucose Level 117mg/dL (70-99) Calcium Level 8.7mg/dL (8.5-10.1) Magnesium Level 1.8mg/dL (1.8-2.4) Troponin I Quantitative 0.059ng/mL (0.000-0.055) 8.094ng/mL (0.000-0.055) 15.278ng/mL (0.000-0.055) LG-Esd-S-Type Natriuretic Peptide 280pg/mL (0-124) Triglycerides Level 99mg/dL (0-150) Cholesterol Level 164mg/dL (0-200) LDL Cholesterol, Calculated 107mg/dL (0-100) VLDL Cholesterol, Calculated 20mg/dL (0-40) HDL Cholesterol 37mg/dL (40-60) Cholesterol/HDL Ratio 4.4 Review of Systems Review of Systems no fever, chills, sob or chest pain Assessment and Plan Assessmemt and Plan Problems Medical Problems: (1) STEMI (ST elevation myocardial infarction) Status: Acute Problems: Comment Review of Relevant I have reviewed the following items lola (where applicable) has been applied. Labs Laboratory Tests Test 06/12/16 12:50 06/12/16 18:40 06/13/16 01:05 White Blood Count 12.3x10^3/uL (4.0-11.0) Red Blood Count 4.81x10^6/uL (4.30-5.70) Hemoglobin 14.1g/dL (13.0-17.5) Hematocrit 41.4% (39.0-53.0) Mean Corpuscular Volume 86fL (79-100) Mean Corpuscular Hemoglobin 29pg (25-35) Mean Corpuscular Hemoglobin Concent 34g/dL (31-37) Red Cell Distribution Width 14.3% (11.5-14.5) Platelet Count 299x10^3/uL (140-400) Neutrophils (%) (Auto) 65% (31-73) Lymphocytes (%) (Auto) 23% (24-48) Monocytes (%) (Auto) 10% (0-9) Eosinophils (%) (Auto) 2% (0-3) Basophils (%) (Auto) 1% (0-3) Neutrophils # (Auto) 7.9x10^3uL (1.8-7.7) Lymphocytes # (Auto) 2.8x10^3/uL (1.0-4.8) Monocytes # (Auto) 1.2x10^3/uL (0.0-1.1) Eosinophils # (Auto) 0.3x10^3/uL (0.0-0.7) Basophils # (Auto) 0.1x10^3/uL (0.0-0.2) Prothrombin Time 13.1SEC (11.7-14.0) Prothromb Time International Ratio 1.1 (0.8-1.1) Sodium Level 142mmol/L (136-145) Potassium Level 4.1mmol/L (3.5-5.1) Chloride Level 105mmol/L (98-107) Carbon Dioxide Level 24mmol/L (21-32) Anion Gap 13 (6-14) Blood Urea Nitrogen 22mg/dL (8-26) Creatinine 1.1mg/dL (0.7-1.3) Estimated GFR (Cockcroft-Gault) 67.0 Glucose Level 117mg/dL (70-99) Calcium Level 8.7mg/dL (8.5-10.1) Magnesium Level 1.8mg/dL (1.8-2.4) Troponin I Quantitative 0.059ng/mL (0.000-0.055) 8.094ng/mL (0.000-0.055) 15.278ng/mL (0.000-0.055) DK-Wpl-H-Type Natriuretic Peptide 280pg/mL (0-124) Triglycerides Level 99mg/dL (0-150) Cholesterol Level 164mg/dL (0-200) LDL Cholesterol, Calculated 107mg/dL (0-100) VLDL Cholesterol, Calculated 20mg/dL (0-40) HDL Cholesterol 37mg/dL (40-60) Cholesterol/HDL Ratio 4.4 Laboratory Tests Test 06/12/16 12:50 06/12/16 18:40 06/13/16 01:05 White Blood Count 12.3x10^3/uL (4.0-11.0) Red Blood Count 4.81x10^6/uL (4.30-5.70) Hemoglobin 14.1g/dL (13.0-17.5) Hematocrit 41.4% (39.0-53.0) Mean Corpuscular Volume 86fL (79-100) Mean Corpuscular Hemoglobin 29pg (25-35) Mean Corpuscular Hemoglobin Concent 34g/dL (31-37) Red Cell Distribution Width 14.3% (11.5-14.5) Platelet Count 299x10^3/uL (140-400) Neutrophils (%) (Auto) 65% (31-73) Lymphocytes (%) (Auto) 23% (24-48) Monocytes (%) (Auto) 10% (0-9) Eosinophils (%) (Auto) 2% (0-3) Basophils (%) (Auto) 1% (0-3) Neutrophils # (Auto) 7.9x10^3uL (1.8-7.7) Lymphocytes # (Auto) 2.8x10^3/uL (1.0-4.8) Monocytes # (Auto) 1.2x10^3/uL (0.0-1.1) Eosinophils # (Auto) 0.3x10^3/uL (0.0-0.7) Basophils # (Auto) 0.1x10^3/uL (0.0-0.2) Prothrombin Time 13.1SEC (11.7-14.0) Prothromb Time International Ratio 1.1 (0.8-1.1) Sodium Level 142mmol/L (136-145) Potassium Level 4.1mmol/L (3.5-5.1) Chloride Level 105mmol/L (98-107) Carbon Dioxide Level 24mmol/L (21-32) Anion Gap 13 (6-14) Blood Urea Nitrogen 22mg/dL (8-26) Creatinine 1.1mg/dL (0.7-1.3) Estimated GFR (Cockcroft-Gault) 67.0 Glucose Level 117mg/dL (70-99) Calcium Level 8.7mg/dL (8.5-10.1) Magnesium Level 1.8mg/dL (1.8-2.4) Troponin I Quantitative 0.059ng/mL (0.000-0.055) 8.094ng/mL (0.000-0.055) 15.278ng/mL (0.000-0.055) ZX-Qlr-C-Type Natriuretic Peptide 280pg/mL (0-124) Triglycerides Level 99mg/dL (0-150) Cholesterol Level 164mg/dL (0-200) LDL Cholesterol, Calculated 107mg/dL (0-100) VLDL Cholesterol, Calculated 20mg/dL (0-40) HDL Cholesterol 37mg/dL (40-60) Cholesterol/HDL Ratio 4.4 Medications Current Medications Sodium Chloride (Iv Sodium Chloride 0.9% 1000ml Bag) 1,000 ml @ 1,000 mls/hr Q1H IV Last administered on 06/12/16t 13:05; Start 06/12/16 at 13:15; Stop at 14:14; Status DC Nitroglycerin (Nitroglycerin) 200 mcg STK-MED ONCE .ROUTE ; Start 06/12/16 at 13 :01; Stop 06/12/16 at 13:02; Status DC Atropine Sulfate 0.5 mg STK-MED ONCE .ROUTE ; Start 06/12/16 at 13:02; Stop at 13:03; Status DC Verapamil HCl (Verapamil) 5 mg STK-MED ONCE .ROUTE ; Start 06/12/16 at 13:02; Stop 06/12/16 at 13:03; Status DC Heparin Sodium (Porcine) (Heparin Sodium) 10,000 unit STK-MED ONCE .ROUTE ; Start 06/12/16 at 13:02; Stop 06/12/16 at 13:03; Status DC Bivalirudin (Angiomax) 250 mg STK-MED ONCE IV ; Start 06/12/16 at 13:02; Stop at 13:03; Status DC Fentanyl Citrate (Fentanyl 5ml Vial) 250 mcg STK-MED ONCE .ROUTE ; Start at 13:02; Stop 06/12/16 at 13:03; Status DC Midazolam HCl 5 mg 5 mg STK-MED ONCE .ROUTE ; Start 06/12/16 at 13:02; Stop at 13:03; Status DC Heparin Sodium/ Sodium Chloride 1,000 ml @ As Directed STK-MED ONCE .ROUTE ; Start 06/12/16 at 13:03; Stop 06/12/16 at 13:04; Status DC Lidocaine HCl 20 ml STK-MED ONCE .ROUTE ; Start 06/12/16 at 13:03; Stop at 13:04; Status DC Phenylephrine HCl 1 mg 1 mg STK-MED ONCE IV ; Start 06/12/16 at 13:08; Stop at 13:09; Status DC Dopamine HCl/ Dextrose 0 ml @ As Directed STK-MED ONCE IV ; Start 06/12/16 at 13 :08; Stop 06/12/16 at 13:09; Status DC Iohexol (Omnipaque 300 Mg/ml) 100 ml STK-MED ONCE .ROUTE ; Start 06/12/16 at 13: 13; Stop 06/12/16 at 13:14; Status DC Nitroglycerin (Nitroglycerin) 200 mcg 1X ONCE IART Last administered on 14:07; Start 06/12/16 at 13:45; Stop 06/12/16 at 13:46; Status DC Verapamil HCl (Verapamil) 2.5 mg 1X ONCE IART Last administered on 06/12/16 14:15; Start 06/12/16 at 13:45; Stop 06/12/16 at 13:46; Status DC Heparin Sodium (Porcine) (Heparin Sodium) 2,500 unit 1X ONCE IART Last administered on 06/12/16 14:12; Start 06/12/16 at 13:45; Stop 06/12/16 at 13:46 ; Status DC Heparin Sodium/ Sodium Chloride 1,000 unit 1X ONCE IART Last administered on 13:45; Start 06/12/16 at 13:45; Stop 06/12/16 at 13:46; Status DC Midazolam HCl (Versed) 5 mg 1X ONCE IV Last administered on 06/12/16 14:08; Start 06/12/16 at 13:45; Stop 06/12/16 at 13:46; Status DC Fentanyl Citrate (Fentanyl 5ml Vial) 250 mcg 1X ONCE IV ; Start 06/12/16 at 13: 45; Stop 06/12/16 at 13:46; Status DC Iohexol (Omnipaque 300 Mg/ml) 100 ml 1X ONCE IART Last administered on 14:07; Start 06/12/16 at 13:45; Stop 06/12/16 at 13:46; Status DC Bivalirudin (Angiomax) 250 mg 1X ONCE IV Last administered on 06/12/16 14:13 ; Start 06/12/16 at 13:45; Stop 06/12/16 at 13:46; Status DC Lidocaine HCl 20 ml 20 ml 1X ONCE IJ Last administered on 06/12/16 14:06; Start 06/12/16 at 13:45; Stop 06/12/16 at 13:46; Status DC Sodium Chloride (Iv Sodium Chloride 0.9% 1000ml Bag) 1,000 ml @ 100 mls/hr 1X ONCE IV Last administered on 06/12/16 17:46; Start 06/12/16 at 13:45; Stop at 23:44; Status DC Prasugrel (Effient) 10 mg STK-MED ONCE .ROUTE ; Start 06/12/16 at 14:01; Stop at 14:02; Status DC Prasugrel (Effient) 60 mg 1X ONCE PO Last administered on 06/12/16 14:16; Start 06/12/16 at 14:00; Stop 06/12/16 at 14:04; Status DC Acetaminophen (Tylenol) 500 mg PRN Q6HRS PRN PO MILD PAIN / TEMP; Start at 14:45 Ondansetron HCl (Zofran) 4 mg PRN Q6HRS PRN IV NAUSEA/VOMITING; Start 06/12/16 at 14:45 Morphine Sulfate 2 mg PRN Q2HR PRN IV PAIN; Start 06/12/16 at 14:45 Aspirin ([place] Aspirin) 325 mg DAILYWBKFT PO ; Start 06/13/16 at 08:00; Stop at 08:00; Status DC Prasugrel (Effient) 10 mg DAILYWBKFT PO Last administered on 06/13/16 08:30; Start 06/13/16 at 08:00 Atorvastatin Calcium (Lipitor) 40 mg QHS PO Last administered on 06/12/16 19: 41; Start 06/12/16 at 21:00 Aspirin (Ecotrin) 81 mg DAILYWBKFT PO Last administered on 06/13/16 08:30; Start 06/13/16 at 08:00 Sertraline HCl (Zoloft) 100 mg DAILY PO Last administered on 06/13/16 10:53; Start 06/13/16 at 10:00 Carvedilol (Coreg) 3.125 mg BIDWMEALS PO ; Start 06/13/16 at 12:30 Active Scripts Active Reported Fish Oil 1,200 mg Softgel ([place]-3S/Dha/Epa/Fish Oil) 1 Each Capsule 1 Each PO DAILY Lipitor (Atorvastatin Calcium) 10 Mg Tablet 1 Tab PO DAILY Zoloft (Sertraline Hcl) 100 Mg Tablet 1 Tab PO DAILY Aspirin 81 Mg Tab.chew 1 Tab PO DAILY Vitals/I & O Vital Sign - Last 24 Hours 06/12/16 06/12/16 06/12/16 06/12/16 12:50 13:45 14:15 14:19 Temp 97.4 97.4 Pulse 55 72 72 Resp 18 16 16 B/P 128/70 Pulse Ox 96 99 95 O2 Delivery Nasal Cannula Nasal Cannula Nasal Cannula O2 Flow Rate 2 3.0 3.0 06/12/16 06/12/16 06/12/16 06/12/16 14:30 14:45 15:00 15:15 Temp 98.7 98.7 Pulse 64 64 64 66 Resp 20 18 16 13 B/P 123/70 122/70 112/79 115/81 Pulse Ox 100 100 100 98 O2 Delivery Nasal Cannula Nasal Cannula Room Air Room Air O2 Flow Rate 2.0 2.0 06/12/17 06/12/17 06/12/17 17 15:30 15:45 16:00 16:11 Pulse 64 68 68 Resp 16 16 12 B/P 120/82 124/73 140/70 Pulse Ox 98 97 98 O2 Delivery Room Air Room Air Room Air Room Air 06/12/16 06/12/1617 06/12/16 16:30 17:00 18:00 19:00 Pulse 68 70 72 72 Resp 14 14 14 14 B/P 124/74 145/67 146/77 132/67 Pulse Ox 95 98 95 95 O2 Delivery Room Air Room Air Room Air Room Air 06/12/1606/12/17 06/12/17 06/12/16 20:00 20:00 21:00 22:00 Temp 98.0 98.0 Pulse 72 72 72 Resp 14 14 14 B/P 155/77 145/72 129/59 Pulse Ox 95 95 95 O2 Delivery Room Air Room Air Room Air Room Air O2 Flow Rate 3.0 06/12/17 06/12/17 06/13/16 06/13/16 23:00 23:59 00:00 01:00 Temp 97.1 97.1 Pulse 72 72 Resp 14 14 B/P 128/65 114/48 Pulse Ox 95 95 O2 Delivery Room Air Room Air Room Air Room Air O2 Flow Rate 3.0 06/13/16 06/13/16 06/13/16 06/13/16 01:00 02:00 03:00 04:00 Temp 98.2 98.2 Pulse 84 74 60 64 Resp 14 16 16 16 B/P 139/62 132/71 119/59 122/70 Pulse Ox 95 95 99 O2 Delivery Room Air Room Air Room Air Room Air 06/13/16 06/13/16 06/13/16 06/13/16 04:00 05:00 06:00 07:00 Pulse 56 54 72 Resp 16 16 18 B/P 151/65 118/65 126/74 Pulse Ox 100 98 98 O2 Delivery Room Air Room Air Room Air Room Air 06/13/16 06/13/16 06/13/16 06/13/16 08:00 08:00 09:00 10:00 Temp 98.3 98.3 Pulse 60 64 70 Resp 16 16 28 B/P 99/47 144/66 141/72 Pulse Ox 99 98 98 O2 Delivery Room Air Room Air Room Air Room Air Intake and Output 06/12/16 06/12/16 06/13/16 15:00 23:00 07:00 Intake Total 150 ml 604 ml 1635 ml Output Total 375 ml 1900 ml Balance 150 ml 229 ml -265 ml ELHAM COKER MD Jun 13, 2016 12:31
[2016-06-13] MEDS: ATORVASTATIN CALCIUM 40 MG TABLET. PO SCH (20:51)
[2016-06-14 03:59] VITALS: BP 112/64
[2016-06-14 04:35] LABS: BASO # 0.1 x10^3/uL (0.0-0.2); BASO % 1 % (0-3); EOS % 3 % (0-3); HEMATOCRIT 41.2 % (39.0-53.0); LYMPH # 1.4 x10^3/uL (1.0-4.8); LYMPH % 14 % (24-48); MEAN CORPUSCULAR HEMOGLOBIN 30 pg (25-35); MEAN CORPUSCULAR HGB CONC 34 g/dL (31-37); MEAN CORPUSCULAR VOLUME 87 fL (79-100); MONO % 11 % (0-9); NEUT % 72 % (31-73); PLATELET COUNT 198 x10^3/uL (140-400); RED BLOOD COUNT 4.75 x10^6/uL (4.30-5.70); RED CELL DISTRIBUTION WIDTH 14.4 % (11.5-14.5); WHITE BLOOD COUNT 9.8 x10^3/uL (4.0-11.0)
[2016-06-14 04:47] LABS: CALCIUM 8.6 mg/dL (8.5-10.1); GFR 74.8; POTASSIUM 4.1 mmol/L (3.5-5.1)
[2016-06-14 07:00] VITALS: BP 126/67
[2016-06-14] MEDS: SERTRALINE 50 MG TABLET. PO SCH (08:49)
[2016-06-14] MEDS: CARVEDILOL 3.125 MG TABLET. PO SCH (08:50)
[2016-06-14] MEDS: PRASUGREL 10 MG TABLET. PO SCH (08:50)
[2016-06-14] MEDS: ASPIRIN ENTERIC COATED 81 MG TABLET.DR. PO SCH (08:50)
[2016-06-14] MEDS ORDERED: CARV3.122 PO (09:45)
[2016-06-14] MEDS ORDERED: PRAS10TA4 PO (09:45)
[2016-06-14] MEDS ORDERED: ATOR40TA59 PO (09:45)
--- NOTE | 2016-06-14 10:04 | PDOC ---
NELLYAPRIL Ciro REPORTING CONSULTANT 06/14/16 1004: CARDIO Progress Notes Date and Time Date of Service 06/14/2016 Time of Evaluation 1002 Subjective Subjective: No Chest Pain, No shortness of breath, No Palpitations, No Dizziness, Other (walked himself back from echo) Vitals Vitals Vital Signs Date Time Temp Pulse Resp B/P Pulse Ox O2 Delivery O2 Flow Rate FiO2 06/14/16 08:50 79 06/14/16 07:00 98.1 17 126/67 97 Room Air 98.1 Weight Weight [ ] Input and Output Intake and Output Intake and Output 06/14/16 07:00 Intake Total 1202 ml Balance 1202 ml Intake Oral 1080 ml IV Total 122 ml # Voids 4 Laboratory Labs Laboratory Tests Test 06/13/16 14:30 06/14/16 04:25 Troponin I Quantitative 8.980ng/mL (0.000-0.055) White Blood Count 9.8x10^3/uL (4.0-11.0) Red Blood Count 4.75x10^6/uL (4.30-5.70) Hemoglobin 14.0g/dL (13.0-17.5) Hematocrit 41.2% (39.0-53.0) Mean Corpuscular Volume 87fL (79-100) Mean Corpuscular Hemoglobin 30pg (25-35) Mean Corpuscular Hemoglobin Concent 34g/dL (31-37) Red Cell Distribution Width 14.4% (11.5-14.5) Platelet Count 198x10^3/uL (140-400) Neutrophils (%) (Auto) 72% (31-73) Lymphocytes (%) (Auto) 14% (24-48) Monocytes (%) (Auto) 11% (0-9) Eosinophils (%) (Auto) 3% (0-3) Basophils (%) (Auto) 1% (0-3) Neutrophils # (Auto) 7.1x10^3uL (1.8-7.7) Lymphocytes # (Auto) 1.4x10^3/uL (1.0-4.8) Monocytes # (Auto) 1.0x10^3/uL (0.0-1.1) Eosinophils # (Auto) 0.3x10^3/uL (0.0-0.7) Basophils # (Auto) 0.1x10^3/uL (0.0-0.2) Sodium Level 141mmol/L (136-145) Potassium Level 4.1mmol/L (3.5-5.1) Chloride Level 107mmol/L (98-107) Carbon Dioxide Level 27mmol/L (21-32) Anion Gap 7 (6-14) Blood Urea Nitrogen 15mg/dL (8-26) Creatinine 1.0mg/dL (0.7-1.3) Estimated GFR (Cockcroft-Gault) 74.8 Glucose Level 105mg/dL (70-99) Calcium Level 8.6mg/dL (8.5-10.1) Physical Exam HEENT: Neck Supple W Full Motion Chest: Symmetric LUNGS: Clear to Auscultation Heart: S1S2, RRR, no gallops, no murmurs, other (tele: SR) Abdomen: Soft N/T Extremities: 2+ Dorsalis Pedis, 2+ Posterior Tibial, No Edema Neurology: alert, oriented, follow commands Assessment Assessment 1. STEMI, inferior thrombosis in existing RCA stent; 3.25 X 38 mm Zions AMELIE to mid RCA DAPT recommended for at least 12 months and lifelong if tolerates LVEF 55% on LV gram echo results pending - june discharge after echo read transferring care to [facility] - follow up in one month 2. Hypotension resolved has been started on low dose carvedilol 3. HLD LDLs = 107 continue high dose statin therapy JORGE HINTON MD 06/14/16 1641: CARDIO Progress Notes Plan Plan Pt. seen and examined. Agree with above [employer] note. No acute events overnight. Normal exam this a.m Echo with normal LV function Peak trop ~15. Will DC today and f/u in 4-6 weeks. APRIL VILLEGAS APRN Jun 14, 2016 10:04 JORGE HINTON MD Jun 14, 2016 16:41
--- NOTE | 2016-06-14 10:48 | CARD ---
APPROVED REPORT EXAM: Two-dimensional and M-mode echocardiogram with Doppler and color Doppler. Other Information Quality : GoodHR: 64bpm Rhythm : NSR INDICATION STEMI 2D DIMENSIONS RVDd3.2 (2.9-3.5cm)Left Atrium(2D)3.6 (1.6-4.0cm) IVSd0.9 (0.7-1.1cm)Aortic Root(2D)3.4 (2.0-3.7cm) LVDd4.8 (3.9-5.9cm)LVOT Diameter2.3 (1.8-2.4cm) PWd0.9 (0.7-1.1cm)LVDs3.1 (2.5-4.0cm) FS (%) 34.9 %SV68.0 ml LVEF(%)64.1 (>50%) Aortic Valve AoV Peak Tang.148.1cm/sAoV VTI28.7cm AO Peak GR.8.8mmHgLVOT Peak Tang.119.8cm/s LVOT VTI 22.86cmAO Mean GR.5mmHg TIFF (VMAX)3.26my1TEN (VTI)3.41cm2 Mitral Valve MV E Nqsucxgx62.9cm/sMV DECEL CLLK332mc MV A Hyqlffdd44.1cm/sMV E Mean Gr.1mmHg MV QVA94duS/A Ratio1.2 MV A Dkxqddcs958xrNWZ (PHT)3.04cm2 TDI E/Lateral E'6.5E/Medial E'9.4 Pulmonary Valve PV Peak Hoxunbfw54.3cm/sPV Peak Grad.4mmHg RVOT VTI15.9cm Tricuspid Valve TR P. Mjqdtvpl293kr/sRAP DOKWIBQW8czNw TR Peak Gr.58kjYbHFOK44osIa Pulmonary Vein S1 Kurlekjo51.2cm/sD2 Reigskxy78.8cm/s PVa demvmcxv060mylf LEFT VENTRICLE The left ventricle is normal size. There is normal left ventricular wall thickness. Left ventricle sy stolic function is normal. The Ejection Fraction is 60-65%. There is normal LV segmental wall motion. The left ventricular diastolic function and filling is normal for age. There is no ventricular septa l defect visualized. RIGHT VENTRICLE The right ventricle is normal size. The right ventricular systolic function is normal. ATRIA The left atrium size is normal. The right atrium size is normal. The interatrial septum is intact wit h no evidence for an atrial septal defect or patent foramen ovale as noted on 2-D or Doppler imaging. AORTIC VALVE The aortic valve is normal in structure and function. The aortic valve is trileaflet. Doppler and Col or Flow revealed no significant aortic regurgitation. There is no significant aortic valvular stenosi s. MITRAL VALVE The mitral valve leaflets are mildly thickened. There is no evidence of mitral valve prolapse. There is no mitral valve stenosis. Doppler and Color Flow revealed mild mitral regurgitation. TRICUSPID VALVE The tricuspid valve is normal in structure and function. Doppler and Color Flow revealed trace tricus pid regurgitation. There is no pulmonary hypertension. The PA pressure was estimated at 23 mmHg. Ther e is no tricuspid valve stenosis. PULMONIC VALVE The pulmonary valve is normal in structure and function. Doppler and Color Flow revealed no pulmonic valvular regurgitation. There is no pulmonic valvular stenosis. GREAT VESSELS The aortic root is normal in size. The ascending aorta is normal in size. Normal pulmonary venous yasmeen w (Doppler). The IVC is normal in size and collapses >50% with inspiration. PERICARDIAL EFFUSION There is no pleural effusion. There is no evidence of significant pericardial effusion. Critical Notification Critical Value: No <Conclusion> Left ventricle systolic function is normal. The Ejection Fraction is 60-65%. There is normal LV segmental wall motion. The left ventricular diastolic function and filling is normal for age.
[2016-06-14 11:20] VITALS: BP 135/75
[2016-06-14] MEDS ORDERED: ASPI325T4 PO (12:30)
--- NOTE | 2016-06-14 12:39 | PDOC3 ---
Discharge Summary [facility] Date of Admission: Jun 12, 2016 Discharge Date: Jun 14, 2016 Admitting Diagnosis 1. STEMI s.p C with re stenting of 100% stenosis of indwelling stent at RCA, EF 55% 2. Transient hypotension off dopa 3. Hx IN CAD > 10 yrs 4. REMOTE smoking hx Problems: Final Diagnosis CONSULTS card Procedures PCI RCA Brief Hospital Course Mr. Walter is a 66 old M, h/o CAD with stent in RCA, comes for chest pain, was found STEMI. He got emergent CAth finding the previous stent was occluded and got another stent in RCA. pt has no chest pain, echo normal dc home with coreg, effient. dc time 35min General: Alert, Oriented X3, Cooperative, No acute distress Heart: Regular rate, Normal S1, Normal S2 Lungs: Clear Abdomen: Normal bowel sounds, Soft, No tenderness, No hepatosplenomegaly, No masses Extremities: No clubbing, No cyanosis, No edema, Normal pulses, No tenderness/ swelling Skin: No rashes, No breakdown, No significant lesion Patient History: Family history: Cardiovascular disease (situation) 33 FATHER 32 MOTHER Problems: Disposition home CONDITION AT DISCHARGE: Improved Diet cardiac Scheduled Aspirin (Aspirin) 1 TAB PO DAILY (Reported) Aspirin (Aspirin) 325 MG PO DAILY (Reported) Atorvastatin Calcium (Atorvastatin Calcium) 40 MG PO QHS Carvedilol (Carvedilol) 3.125 MG PO BIDWMEALS [place]-3S/Dha/Epa/Fish Oil (Fish Oil 1,200 mg Softgel) 1 EACH PO DAILY (Reported ) Prasugrel Hcl (Effient) 10 MG PO DAILYWBKFT Sertraline Hcl (Zoloft) 1 TAB PO DAILY (Reported) Discontinued Medications Atorvastatin Calcium (Lipitor) 1 TAB PO DAILY (Reported) [place]-3/Dha/Epa/Fish Oil (Fish Oil Conc 1,000 mg Softgel) 1,000 MG PO (Reported ) Follow Up pcp and card in 2 weeks ELHAM COKER MD Jun 14, 2016 12:39
== END 2016-06-14 13:58 | disposition home or self-care (01) | DRG 246 ==
LOC: ER 12:50 → 1 WEST ICU 13:00 → 2 SOUTH 06-13 14:01
PROVIDERS: ADMIT Internal Medicine; ATTEND Internal Medicine
PROC: 027034Z Dilation of Coronary Artery, One Artery with Drug-eluting Intraluminal Device, Percutaneous Approach (ICD-10-PCS; principal; 2016-06-12)
PROC: 4A023N7 Measurement of Cardiac Sampling and Pressure, Left Heart, Percutaneous Approach (ICD-10-PCS; 2016-06-12)
PROC: B2111ZZ Fluoroscopy of Multiple Coronary Arteries using Low Osmolar Contrast (ICD-10-PCS; 2016-06-12)
PROC: B2151ZZ Fluoroscopy of Left Heart using Low Osmolar Contrast (ICD-10-PCS; 2016-06-12)
DX: T82.867A Thrombosis due to cardiac prosthetic devices, implants and grafts, initial encounter (principal); I21.19 ST elevation (STEMI) myocardial infarction involving other coronary artery of inferior wall; Y92.89 Other specified places as the place of occurrence of the external cause; Y83.8 Other surgical procedures as the cause of abnormal reaction of the patient, or of later complication, without mention of misadventure at the time of the procedure; E78.5 Hyperlipidemia, unspecified; I10 Essential (primary) hypertension; I25.10 Atherosclerotic heart disease of native coronary artery without angina pectoris; I73.9 Peripheral vascular disease, unspecified; Y92.481 Parking lot as the place of occurrence of the external cause; Z82.49 Family history of ischemic heart disease and other diseases of the circulatory system; I25.2 Old myocardial infarction; Z87.891 Personal history of nicotine dependence
CPT/HCPCS: 36415; 37250; 80048; 80061; 83735; 83880; 84484; 85027; 85610; 92941; 93005; 93306; 93458; C1725; C1753; C1769; C1874; C1887; C1892; J0583; J2250; J3490; J7030; Q9967; 99285-25